=== PATIENT | male | born 1960 | race Caucasian/White ===

== ENCOUNTER 2017-07-04 18:23 | Emergency (ER) | payer OTHER ==
[~2017-07-04] VITALS: Ht 182.9 cm; Wt 84.9 kg
[2017-07-04 18:48] LABS: HEMATOCRIT 40.6 % (38.0-50.0); HEMOGLOBIN 14.1 G/DL (12.5-16.6); MCH 32.7 PG (29.0-34.0); MCHC 34.7 G/DL (30.0-36.0); MCV 94.2 FL (86-99); PLATELET COUNT 125 K/uL (156-360); RBC DIS.WIDTH-CV 13.1 % (11.8-14.6); RBC DIS.WIDTH-SD 45.9 % (39-53); RED BLOOD COUNT 4.31 M/uL (4.00-5.50); WHITE BLOOD COUNT 8.5 K/uL (4.1-10.2)
[2017-07-04 18:58] LABS: CHLORIDE 102 mEq/L (99-109); POTASSIUM 3.8 mEq/L (3.7-5.4); SODIUM 136 mEq/L (136-147)
[2017-07-04 19:00] LABS: GLUCOSE 83 mg/dL (70-99)
[2017-07-04 19:04] LABS: CREATININE 0.8 mg/dL (0.6-1.3); GFR ESTIMATE (CALCULATED) > 59 mL/min/ (58.99-99999); UREA NITROGEN (BUN) 14 mg/dL (9-23)
[2017-07-04] MEDS ORDERED: LEVAQUIN750 MG PO (19:46)
[2017-07-04 20:25] VITALS: BP 121/82
== END 2017-07-04 20:25 | disposition home or self-care (01) ==
LOC: EME 18:23
PROVIDERS: Nurse Practitioner Family
DX: J18.9 Pneumonia, unspecified organism (principal); G89.29 Other chronic pain; M54.9 Dorsalgia, unspecified; F17.200 Nicotine dependence, unspecified, uncomplicated
CPT/HCPCS: 71046; 80048; 81003; 85027; 99281; 99285